=== PATIENT | male | born 1960 | race Caucasian/White ===

== ENCOUNTER → 2018-01-07 | Outpatient (CLI) | payer BC ==
--- NOTE | 2018-01-07 15:57 | XR ---
EXAMINATION TYPE: XR shoulder complete LT DATE OF EXAM: 01/07/2018 CLINICAL HISTORY: pain COMPARISON: NONE TECHNIQUE: Three views of the left shoulder are obtained. FINDINGS: There is no acute fracture/dislocation evident. The acromioclavicular and glenohumeral rukhsana int spaces appear within normal limits. The visualized ribs are intact and unremarkable. IMPRESSION: 1. There is no acute fracture or dislocation. ICD 10 NO FRACTURE, INITIAL EVALUATION
== END | disposition home or self-care (01) ==
LOC: RADXRYALE 15:39
PROVIDERS: ATTEND Family Medicine
DX: S46.212D Strain of muscle, fascia and tendon of other parts of biceps, left arm, subsequent encounter (principal)

== ENCOUNTER 2018-04-14 23:24 | Emergency (ER) | payer BC ==
--- NOTE | 2018-04-14 23:41 | ED ---
General Adult HPI - General Chief complaint: Urogenital Stated complaint: Side Pain Source: patient Mode of arrival: ambulatory Limitations: no limitations - History of Present Illness Initial comments: Dictation was produced using [employer] dictation software. please excuse any grammatical, word or spelling errors. Chief Complaint: 58-year-old male past medical history diabetes and hypertension presents with right-sided flank pain. History of Present Illness: Patient's 58-year-old past medical history of hypertension diabetes presents with right-sided flank pain. Patient states he had an episode yesterday when he experienced several minutes of intense right- sided flank pain. States that his symptoms resolved later. Today he was totally asymptomatic. He is walking with his when after the walk he sat down and began expressing that pain as well. The past couple days patient has been having dark colored urine. It has any constitutional symptoms. No nausea vomiting. No diarrhea. No dysuria. The ROS documented in this emergency department record has been reviewed and confirmed by me. Those systems with pertinent positive or negative responses have been documented in the HPI. All other systems are other negative and/or noncontributory. - Related Data Home Medications Medication Instructions Recorded Confirmed Cholecalciferol (Vitamin D3) 2,000 unit PO DAILY 04/14/18 04/14/18 [Vitamin D3] Glimepiride [Amaryl] 4 mg PO AC-BID 04/14/18 04/14/18 Losartan [Cozaar] 50 mg PO DAILY 04/14/18 04/14/18 Pravastatin Sodium [Pravachol] 40 mg PO HS 04/14/18 04/14/18 metFORMIN HCL [Glucophage] 500 mg PO AC-BID 04/14/18 04/14/18 Previous Rx's Medication Instructions Recorded Ondansetron Odt [Zofran Odt] 4 mg PO Q8HR PRN #12 tab 04/15/18 Tamsulosin HCl [Flomax] 0.4 mg PO DAILY #8 capsule 04/15/18 Allergies Allergy/AdvReac Type Severity Reaction Status Date / Time No Known Allergies Allergy Verified 04/14/18 23:43 Review of Systems ROS Statement: Those systems with pertinent positive or pertinent negative responses have been documented in the HPI. ROS Other: All systems not noted in ROS Statement are negative. Past Medical History Past Medical History: Diabetes Mellitus, Hypertension Additional Past Medical History / Comment(s): hypercholestremia. History of Any Multi-Drug Resistant Organisms: None Reported Past Surgical History: No Surgical Hx Reported Past Psychological History: No Psychological Hx Reported Smoking Status: Never smoker Past Alcohol Use History: Occasional Past Drug Use History: None Reported General Exam - General Exam Comments Initial Comments: PHYSICAL EXAM: General Impression: Alert and oriented x3, not in acute distress HEENT: Normocephalic atraumatic, extra-ocular movements intact, pupils equal and reactive to light bilaterally, mucous membranes moist. Cardiovascular: Heart regular rate and rhythm, S1&S2 audible, no murmurs, rubs or gallops Chest: Lungs clear to auscultation bilaterally, no rhonchi, no wheeze, no rales Abdomen: Bowel sounds present, abdomen soft, non-tender, non-distended, no organomegaly Musculoskeletal: Pulses present and equal in all extremities, no peripheral edema Motor: Power 5/5 bilaterally, no focal deficits noted Neurological: CN II-XII grossly intact, no focal motor or sensory deficits noted Skin: Intact with no visualized rashes Psych: Normal affect and mood Limitations: no limitations Course Vital Signs 04/14/18 23:25 Temperature 98.5 F Pulse Rate 63 Respiratory 16 Rate Blood Pressure 176/95 O2 Sat by Pulse 96 Oximetry Medical Decision Making - Medical Decision Making ED course: 58-year-old male presents with chief complaint of flank pain. His upon arrival shows findings within normal limits. presentation is suspicious for renal colic. Patient is well-appearing. He does not appear to be in significant distress. His examination is otherwise benign. Laboratory evaluation obtained. Patient has mild leukocytosis of 11.1 likely significant distress. Rest of CBC unremarkable. Metabolic panel shows mild hyperglycemia 144. Urine shows large blood, microscopy shows 40 red blood cells. 2 white blood cells. Negative nitrites, negative leuk esterase. No concern for urinary tract infection at this time. CT abdomen and pelvis shows a 6 mm stone in the bladder. There is also a 5 mm calculus in the lower right ureter. He is given Zofran, Flomax and Toradol shot here. Patient has Motrin at home he can take for pain. Prescription provided for antiemetics and Flomax. He is given outpatient referral to urology. Flank pain. Patient told to return to emergency Department with any worsening symptoms or development of fever or other constitutional symptoms. - Lab Data Result diagrams: 04/14/18 23:40 04/14/18 23:40 Lab Results 04/14/18 04/14/18 04/14/18 Range/Units 23:37 23:40 23:40 WBC 11.1 H (3.8-10.6) k/uL RBC 5.24 (4.30-5.90) m/uL Hgb 15.1 (13.0-17.5) gm/dL Hct 45.2 (39.0-53.0) % MCV 86.3 (80.0-100.0) fL MCH 28.8 (25.0-35.0) pg MCHC 33.4 (31.0-37.0) g/dL RDW 12.4 (11.5-15.5) % Plt Count 247 (150-450) k/uL Neutrophils % 53 % Lymphocytes % 33 % Monocytes % 8 % Eosinophils % 3 % Basophils % 1 % Neutrophils # 5.9 (1.3-7.7) k/uL Lymphocytes # 3.7 (1.0-4.8) k/uL Monocytes # 0.9 (0-1.0) k/uL Eosinophils # 0.3 (0-0.7) k/uL Basophils # 0.1 (0-0.2) k/uL Sodium 140 (137-145) mmol/L Potassium 4.1 (3.5-5.1) mmol/L Chloride 107 (98-107) mmol/L Carbon Dioxide 24 (22-30) mmol/L Anion Gap 9 mmol/L BUN 21 H (9-20) mg/dL Creatinine 1.10 (0.66-1.25) mg/dL Est GFR (CKD-EPI)AfAm 86 (>60 ml/min/1.73 sqM) Est GFR (CKD-EPI)NonAf 75 (>60 ml/min/1.73 sqM) Glucose 144 H (74-99) mg/dL Calcium 9.2 (8.4-10.2) mg/dL Urine Color Yellow Urine Appearance Clear (Clear) Urine pH 5.0 (5.0-8.0) Ur Specific [place] 1.021 (1.001-1.035) Urine Protein Trace H (Negative) Urine Glucose (UA) Negative (Negative) Urine Ketones Negative (Negative) Urine Blood Large H (Negative) Urine Nitrite Negative (Negative) Urine Bilirubin Negative (Negative) Urine Urobilinogen <2.0 (<2.0) mg/dL Ur Leukocyte Esterase Negative (Negative) Urine RBC 40 H (0-5) /hpf Urine WBC 2 (0-5) /hpf Urine Mucus Rare H (None) /hpf Disposition Clinical Impression: Nephrolithiasis Disposition: HOME SELF-CARE Condition: Fair Instructions: Kidney Stones (ED) Prescriptions: Ondansetron Odt [Zofran Odt] 4 mg PO Q8HR PRN #12 tab PRN Reason: Nausea Tamsulosin HCl [Flomax] 0.4 mg PO DAILY #8 capsule Is patient prescribed a controlled substance at d/c from ED?: No Referrals: Germán Millan DO [Primary Care Provider] - 1-2 days Mehdi Villarreal MD [STAFF PHYSICIAN] - 1-2 days Time of Disposition: 00:31
[2018-04-14 23:57] LABS: Basophils # (A) 0.1 k/uL (0-0.2); Basophils % (A) 1 %; Eosinophils # (A) 0.3 k/uL (0-0.7); Eosinophils % (A) 3 %; HCT 45.2 % (39.0-53.0); HGB 15.1 gm/dL (13.0-17.5); Lymphocytes # (A) 3.7 k/uL (1.0-4.8); Lymphocytes % (A) 33 %; MCH 28.8 pg (25.0-35.0); MCHC 33.4 g/dL (31.0-37.0); MCV 86.3 fL (80.0-100.0); Mean Platelet Volume 6.6; Monocytes # (A) 0.9 k/uL (0-1.0); Monocytes % (A) 8 %; Neutrophils # (A) 5.9 k/uL (1.3-7.7); Neutrophils % (A) 53 %; Platelet Count 247 k/uL (150-450); RBC 5.24 m/uL (4.30-5.90); RDW 12.4 % (11.5-15.5); WBC 11.1 k/uL (3.8-10.6)
[2018-04-14 23:58] LABS: Appearance,Urine Clear (Clear); Bilirubin,Urine Negative (Negative); Blood,Urine Large (Negative); Color,Urine Yellow; Glucose,Urine (UA) Negative (Negative); Ketones,Urine Negative (Negative); Leukocyte Esterase,Urine Negative (Negative); Mucus,Urine Rare /hpf; Nitrite,Urine Negative (Negative); Protein,Urine Trace (Negative); RBC,Urine 40 /hpf (0-5); Specific Gravity,Urine 1.021 (1.001-1.035); Urobilinogen,Urine <2.0 mg/dL (<2.0); WBC,Urine 2 /hpf (0-5)
[2018-04-15 00:09] LABS: Calcium 9.2 mg/dL (8.4-10.2); Potassium 4.1 mmol/L (3.5-5.1)
--- NOTE | 2018-04-15 00:16 | CT ---
EXAMINATION TYPE: CT abdomen pelvis wo con DATE OF EXAM: 04/15/2018 COMPARISON: None HISTORY: right lower back pain that shoots around to the groin CT DLP: 1423.80 mGycm Automated exposure control for dose reduction was used. TECHNIQUE: Helical acquisition of images was performed from the lung bases through the pelvis. FINDINGS: Lung bases are clear. There is no pleural effusion. Heart size is normal. There is no pericardial eff usion. Liver appears normal. Gallbladder appears normal. Bile ducts are not dilated. Spleen and pancreas justyn ear normal. There is some stranding around the right kidney. There is right-sided hydronephrosis and hydroureter. There appears to be a 5 mm calculus in the lower right ureter at the level of the right hip joint. T his is approximately 5 cm from the ureterovesical junction. There is also 6 mm calcification in the u rinary bladder on the right side. This could be within the bladder. There is no retroperitoneal adeno dick. There is no ascites. Appendix appears normal. There is no intestinal wall thickening. There ar e no dilated loops. Prostate is enlarged and measures 6 cm. IMPRESSION: Obstructing calculus in the lower right ureter. additional calculus at the right ureterovesical junc tion or within the urinary bladder. Normal appendix. Enlarged prostate.
[2018-04-15] MEDS ORDERED: KETOROLAC 30 MG/ML 1 ML VIAL IM STA (00:27)
[2018-04-15] MEDS ORDERED: TAMSULOSIN 0.4 MG CAP.ER.24H PO STA (00:27)
[2018-04-15] MEDS ORDERED: ONDANSETRON ODT 8 MG TAB.RAPDIS PO STA (00:27)
[2018-04-15 00:38] VITALS: BP 180/94; PULSE 61; RESP 18; TEMP 99.7
== END 2018-04-15 00:46 | disposition home or self-care (01) ==
LOC: EC 23:24
DX: N20.2 Calculus of kidney with calculus of ureter (principal); N21.0 Calculus in bladder; D72.829 Elevated white blood cell count, unspecified; E11.65 Type 2 diabetes mellitus with hyperglycemia; I10 Essential (primary) hypertension; E78.00 Pure hypercholesterolemia, unspecified; Z79.84 Long term (current) use of oral hypoglycemic drugs; Z79.899 Other long term (current) drug therapy
CPT/HCPCS: 36415; 80048; 85025; 81001; 74176; 99284; 96374; J1885

== ENCOUNTER → 2020-06-14 | Outpatient (CLI) | payer OTHER ==
--- NOTE | 2020-06-14 12:21 | XR ---
EXAMINATION TYPE: XR shoulder complete BILAT DATE OF EXAM: 06/14/2020 CLINICAL HISTORY: Increasing bilateral shoulder pain TECHNIQUE: Three views of the bilateral shoulders are obtained. COMPARISON: Left shoulder x-ray January 07, 2018. FINDINGS: There is no acute fracture/dislocation evident in either shoulder. Acromioclavicular joint shows symmetric mild to moderate narrowing. Distal acromion morphology fairly unremarkable bilateral ly. Glenohumeral joint shows mild narrowing and spurring bilaterally fairly symmetric in appearance. Visualized ribs are intact bilaterally. No significant change from 2018 shoulder study. IMPRESSION: As above.
== END | disposition home or self-care (01) ==
LOC: RADXRYALE 11:45
PROVIDERS: ATTEND Family Medicine
DX: M75.81 Other shoulder lesions, right shoulder (principal); M75.82 Other shoulder lesions, left shoulder

== ENCOUNTER → 2020-07-25 | Outpatient (CLI) | payer OTHER ==
--- NOTE | 2020-07-27 10:47 | CT ---
EXAMINATION TYPE: CT urogram wo/w con DATE OF EXAM: 07/25/2020 COMPARISON: 04/14/2018 INDICATION: Hematuria, prostatitis. DLP: 3077.7 mGycm, Automated exposure control for dose reduction was used. CONTRAST: 100 mL of Isovue M300. Study performed TECHNIQUE: Axial images were obtained from above the diaphragm to the pubic rami in the axial plane a t 5 mm thick sections. Reconstructed images are reviewed on the computer in the coronal plane. FINDINGS: Limited CT sections are obtained the lung bases. The lung bases are clear. CT ABDOMEN: Liver: Normal Spleen: Normal Pancreas: Normal Adrenal glands: The adrenal glands are normal. Gallbladder: Normal Kidneys: No masses are evident. No hydronephrosis is present. No cysts are present. Delayed images were obtained through the kidneys, which remain unremarkable. Aorta: Vascular calcification is within the aorta. Inferior vena cava: Normal. CT PELVIS: Loops of bowel within the abdomen and pelvis are normal. There are loops of bowel which are incom pletely distended or lack oral contrast limiting their evaluation. Appendix: Normal as visualized. Urinary bladder: Normal. Genitourinary structures: Prostate is very prominent and has impression on the inferior aspect of uri nary bladder. Osseous structures: No suspicious lytic or sclerotic lesions. Facet degenerative changes are through the lumbar spine. Three-D reconstructed images performed on a separate computer by the technologist are presented. Vera l calyces and renal pelves appear normal. Ureters follow a normal caliber course and contour to the u rinary bladder. Urinary bladder fills normally without intraluminal defects. There is inferior urinar y bladder impression from the enlarged prostate. IMPRESSIONS: 1. No suspicious acute abnormality renal collecting system. 2. Prominent prostate with inferior impression on the urinary bladder.
== END | disposition home or self-care (01) ==
LOC: RADCTMAIN 10:45
PROVIDERS: ATTEND Urology
DX: N42.89 Other specified disorders of prostate (principal); R31.1 Benign essential microscopic hematuria; Z88.1 Allergy status to other antibiotic agents
CPT/HCPCS: 82565; 84520; 74178; 36415; 74400; Q9967

== ENCOUNTER → 2020-08-14 | Outpatient (CLI) | payer OTHER ==
[2020-08-14 11:08] LABS: Basophils # (A) 0.1 k/uL (0-0.2); Basophils % (A) 1 %; Eosinophils # (A) 0.4 k/uL (0-0.7); Eosinophils % (A) 6 %; HCT 42.9 % (39.0-53.0); HGB 14.8 gm/dL (13.0-17.5); Lymphocytes # (A) 1.7 k/uL (1.0-4.8); Lymphocytes % (A) 25 %; MCH 30.6 pg (25.0-35.0); MCHC 34.5 g/dL (31.0-37.0); MCV 88.8 fL (80.0-100.0); Monocytes # (A) 0.4 k/uL (0-1.0); Monocytes % (A) 6 %; Neutrophils % (A) 60 %; Platelet Count 188 k/uL (150-450); RBC 4.83 m/uL (4.30-5.90); RDW 12.8 % (11.5-15.5); WBC 6.7 k/uL (3.8-10.6)
[2020-08-14 11:47] LABS: African American GFR (CKD) >90 (>60 ml/min/1.73 sqM); Anion Gap 7 mmol/L; Blood Urea Nitrogen 15 mg/dL (9-20); Calcium 9.3 mg/dL (8.4-10.2); Carbon Dioxide 29 mmol/L (22-30); Chloride 100 mmol/L (98-107); Glucose 244 mg/dL (74-99); Non-African American GFR(CKD) 79 (>60 ml/min/1.73 sqM); Potassium 4.9 mmol/L (3.5-5.1); Sodium 136 mmol/L (137-145)
== END | disposition home or self-care (01) ==
LOC: LABPAT 09:24
PROVIDERS: ATTEND Urology
DX: Z01.818 Encounter for other preprocedural examination (principal); N21.9 Calculus of lower urinary tract, unspecified; E11.9 Type 2 diabetes mellitus without complications
CPT/HCPCS: 36415; 80048; 85025

== ENCOUNTER → 2020-08-21 | Day surgery (SDC) | payer OTHER ==
[2020-08-19 14:40] VITALS: BMI 32.8
--- NOTE | 2020-08-20 16:55 | P.GSHP ---
History of Present Illness H&P Date: 08/20/20 60 yo male sent to me for an elevated psa. He had an enterococcus uti. He was palced on ab but his symptoms and urine remained abnormal I therefore did cystoscopy and identified a large stone at the bladder neck[> 2.5cm]. He has a large prostate. He comes for a cystolithotripsy - Constitutional Constitutional: Denies chills, Denies fever - EENT Eyes: denies blurred vision, denies pain Ears, nose, mouth and throat: Denies headache, Denies sore throat - Cardiovascular Cardiovascular: Denies chest pain, Denies shortness of breath - Respiratory Respiratory: Denies cough, Denies 7 - Gastrointestinal Gastrointestinal: Denies abdominal pain, Denies diarrhea, Denies nausea, Denies vomiting - Genitourinary (Female) Genitourinary: Denies dysuria, Denies hematuria - Genitourinary (Male) Genitourinary: Denies dysuria, Denies hematuria - Musculoskeletal Musculoskeletal: Denies myalgias - Integumentary Integumentary: Denies pruritus, Denies rash - Neurological Neurological: Denies numbness, Denies weakness - Psychiatric Psychiatric: Denies anxiety, Denies depression - Endocrine Endocrine: Denies fatigue, Denies weight change Past Medical History Past Medical History: Diabetes Mellitus, Hyperlipidemia, Hypertension Additional Past Medical History / Comment(s): bladder stones History of Any Multi-Drug Resistant Organisms: None Reported Past Surgical History: Tonsillectomy Past Anesthesia/Blood Transfusion Reactions: No Reported Reaction Smoking Status: Never smoker - Past Family History Father Family Medical History: Cancer Additional Family Medical History / Comment(s): lung, esophageal cancer Medications and Allergies Home Medications Medication Instructions Recorded Confirmed Type Cholecalciferol (Vitamin D3) 2,000 unit PO DAILY 04/14/18 08/19/20 History [Vitamin D3] Losartan [Cozaar] 50 mg PO DAILY 04/14/18 08/19/20 History Pravastatin Sodium [Pravachol] 40 mg PO HS 04/14/18 08/19/20 History metFORMIN HCL [Glucophage] 1,000 mg PO AC-BID 04/14/18 08/19/20 History Tamsulosin HCl [Flomax] 0.4 mg PO DAILY #8 capsule 04/15/18 08/19/20 Rx Amoxicillin (Unk. Dose) 1 tab PO TID 08/19/20 08/19/20 History [place]-3 Fatty Acids/Fish Oil [Fish 1 each PO DAILY 08/19/20 08/19/20 History Oil 1,000 mg Softgel] Allergies Allergy/AdvReac Type Severity Reaction Status Date / Time ciprofloxacin [From Cipro] Allergy Unknown Verified 08/19/20 14:17 Surgical - Exam - General well developed, well nourished, no distress - Eyes PERRL - ENT no hearing loss - Neck trachea midline - Respiratory normal expansion, normal respiratory effort - Cardiovascular Rhythm: regular - Abdomen Abdomen: soft, non tender - Genitourinary prostate 45 gm and benign normal penis with no external lesions, testicles present - Integumentary no rash, no growths - Neurologic normal coordination, normal sensation - Musculoskeletal normal gait, normal posture - Psychiatric oriented to time, oriented to person, oriented to place, speech is normal, memory intact Assessment and Plan Assessment: Impression: Bladder stone large[>2.5cm] Plan: cystolithotripsy with laser.
[~2020-08-21] MED LIST: DEXAMETHASONE SOD PHOSPHATE 4 MG/ML 1 ML VIAL IV ONE; HYDROmorphone 0.5 MG/0.5 ML SYRINGE IVP PRN; LACTATED RINGERS 1,000 ML IV SCH; LIDOCAINE 1% (10MG/ML) FOR IV START INTRADERMA ONE; LIDOCAINE 1% INJ 10MG/ML (20 ML MDV) ONE; MIDAZOLAM 2 MG/2 ML VIAL ONE; ONDANSETRON 4 MG/2 ML VIAL IVP ONE; PROPOFOL 10 MG/ML 20 ML VIAL IV ONE; ePHEDrine SULFATE/0.9% NACL/PF 50 MG/5 ML SYRINGE IV ONE; fentaNYL (PF) 50 MCG/ML 2 ML AMP ONE
[2020-08-21 10:39] LABS: Glucose,Whole Blood 204 mg/dL (75-99)
--- NOTE | 2020-08-21 11:37 | P.OP ---
Date of Procedure: 08/21/20 Preoperative Diagnosis: Bladder stone large Postoperative Diagnosis: Same Procedure(s) Performed: Cystoscopy with cystolithotripsy large (greater than 2.5 cm) Anesthesia: LEXUS Surgeon: Star Ceballos Estimated Blood Loss (ml): 10 Pathology: other Condition: stable (Stone) Disposition: PACU Indications for Procedure: Patient is 60. He is referred to ct for a possible urinary infection. He is treated with culture specific antibiotics but his dysuria persisted. Cystoscopy identified a 3 cm stone at the bladder neck. He comes for cystoscopy lithotripsy. He does have a large prostate Description of Procedure: Patient brought to the operating suite and given a general endotracheal anesthesia. He's placed lithotomy position with sterile prep and drape. Cystoscopy Foroblique lens and 17-[place]itan sheath identifies normal urethra. The prostate is long with lateral lobe obstruction. There is a large jagged stone in the bladder. With the 500 laser probe the stone was dusted into tiny fragments and irrigated out of the bladder. Then of the procedure there is no damage the bladder. There is minimal bleeding of the prostate. I've drain the bladder stone. There is no remaining stone. There is not enough bleeding to leave the [place]. The bladder strain the patient's awake and returned recovery in good condition. He will be discharged home upon recovery and follow-up in the office in one week. We will see how he voids to determine what further treatment for his enlarged prostate will be necessary
[2020-08-21 11:51] VITALS: RESP 16; TEMP 97.1
[2020-08-21 12:44] VITALS: BP 126/83; PULSE 67
== END ==
LOC: OR 09:34
PROVIDERS: ATTEND Urology
DX: N21.0 Calculus in bladder (principal); Z87.442 Personal history of urinary calculi; I10 Essential (primary) hypertension; E78.5 Hyperlipidemia, unspecified; E11.9 Type 2 diabetes mellitus without complications; Z88.1 Allergy status to other antibiotic agents; Z79.899 Other long term (current) drug therapy; Z79.84 Long term (current) use of oral hypoglycemic drugs; Z90.89 Acquired absence of other organs; Z80.1 Family history of malignant neoplasm of trachea, bronchus and lung; Z80.0 Family history of malignant neoplasm of digestive organs
CPT/HCPCS: 82365; 52318; J2250; J1100; J0690; J2405; J2001; J3010; J2704

== ENCOUNTER 2022-06-30 18:15 | Emergency (ER) | payer OTHER ==
[2022-06-30 18:57] VITALS: TEMP 97.8
[2022-06-30] MEDS ORDERED: PROPARACAINE 0.5% OPHTH DROPS 15 ML BTL RIGHT EYE STA (19:34)
[2022-06-30] MEDS ORDERED: FLUORESCEIN STRIPS 1 MG STRIP RIGHT EYE ONE ×2 (19:34→20:49)
[2022-06-30] MEDS ORDERED: ERYTHROMYCIN 5 MG/GM OPHTH OINT 3.5 GM TUBE LEFT EYE STA (21:09)
--- NOTE | 2022-06-30 21:12 | ED ---
Eye Problem HPI - General Chief complaint: Eye Problems Stated complaint: Head injury Time Seen by Provider: 06/30/22 19:30 Source: patient Mode of arrival: ambulatory Limitations: no limitations - History of Present Illness Initial comments: Patient is a 62-year-old male who presents to the emergency department with a chief complaint of left eye floaters. Patient states he was drilling at eye level when the battery of the drill flew out and hit him in the eye. Patient reports minimal pain. States a couple hours after injury he saw flashes of light for a few minutes which transitioned to consistent floaters. He denies blurry vision and double vision. Denies contact use. Does report laser eye surgery in this eye. - Related Data Home Medications Medication Instructions Recorded Confirmed Losartan [Cozaar] 50 mg PO DAILY 04/14/18 06/30/22 Pravastatin Sodium [Pravachol] 40 mg PO HS 04/14/18 06/30/22 metFORMIN HCL [Glucophage] 1,000 mg PO BID 04/14/18 06/30/22 Ertugliflozin Pidolate [Steglatro] 15 mg PO DAILY 06/30/22 06/30/22 Finasteride [Proscar] 5 mg PO DAILY 06/30/22 06/30/22 Pioglitazone HCl 45 mg PO DAILY 06/30/22 06/30/22 Tamsulosin HCl [Flomax] 0.4 mg PO BID 06/30/22 06/30/22 Allergies Allergy/AdvReac Type Severity Reaction Status Date / Time ciprofloxacin [From Cipro] Allergy Unknown Verified 06/30/22 19:02 Review of Systems ROS Statement: Those systems with pertinent positive or pertinent negative responses have been documented in the HPI. ROS Other: All systems not noted in ROS Statement are negative. Past Medical History Past Medical History: Diabetes Mellitus, Hypertension Additional Past Medical History / Comment(s): hypercholestremia. History of Any Multi-Drug Resistant Organisms: None Reported Past Surgical History: No Surgical Hx Reported Past Psychological History: No Psychological Hx Reported Smoking Status: Never smoker Past Alcohol Use History: Occasional Past Drug Use History: Marijuana General Exam Limitations: no limitations General appearance: alert, in no apparent distress Eye exam: Present: normal appearance, PERRL, EOMI. Absent: scleral icterus, conjunctival injection, periorbital swelling, periorbital tenderness Respiratory exam: Present: normal lung sounds bilaterally. Absent: respiratory distress, wheezes, rales, rhonchi, stridor Cardiovascular Exam: Present: regular rate, normal rhythm, normal heart sounds. Absent: systolic murmur, diastolic murmur, rubs, gallop, clicks Neurological exam: Present: alert, oriented X3, CN II-XII intact Psychiatric exam: Present: normal affect, normal mood Skin exam: Present: warm, dry, intact, normal color. Absent: rash Course Vital Signs 06/30/22 06/30/22 18:55 21:21 Temperature 97.8 F Pulse Rate 63 62 Respiratory 20 18 Rate Blood Pressure 159/109 156/100 O2 Sat by Pulse 98 Oximetry Medical Decision Making - Medical Decision Making This is a 62-year-old male presenting with left eye injury. PERRL. Wood's lamp examination revealed a corneal defect without abrasion or foreign body. Case discussed with Dr. Alfaro. Defect could be due to prior laser eye surgery. This was discussed with patient. Patient to call ophthalmology office in the morning for appointment tomorrow. Will prophylactically treat him with erythromycin ointment. Dr. Zapata is my attending. Disposition Clinical Impression: Left eye injury Disposition: HOME SELF-CARE Condition: Good Instructions (If sedation given, give patient instructions): Eye Pain (ED) Additional Instructions: Apply ointment every 4 hours for the next 3-5 days or until further order from ophthalmology. Call ophthalmology office in the morning. Let them know you were in the emergency department tonight and per Dr. Alfaro need to be evaluated by ophtho tomorrow. Return to the emergency department experience new, concerning, or worsening symptoms. Is patient prescribed a controlled substance at d/c from ED?: No Referrals: Germán Millan DO [Primary Care Provider] - 1-2 days Mikhail Alfaro MD [STAFF PHYSICIAN] - 1-2 days
[2022-06-30 21:22] VITALS: BP 156/100; PULSE 62; RESP 18
== END 2022-06-30 21:31 | disposition home or self-care (01) ==
LOC: EC 18:15
DX: S05.92XA Unspecified injury of left eye and orbit, initial encounter (principal); I10 Essential (primary) hypertension; E11.9 Type 2 diabetes mellitus without complications; F12.90 Cannabis use, unspecified, uncomplicated; Z79.84 Long term (current) use of oral hypoglycemic drugs; Z79.811 Long term (current) use of aromatase inhibitors; Z79.899 Other long term (current) drug therapy; Z88.1 Allergy status to other antibiotic agents; W29.8XXA Contact with other powered hand tools and household machinery, initial encounter
CPT/HCPCS: 99283